=== PATIENT | female | born 1995 | race Caucasian/White ===

== ENCOUNTER 2025-07-20 22:34 | Emergency (ER) | payer OTHER, SELFPAY ==
[2025-07-20 22:39] VITALS: BP 111/71; PULSE 78; RESP 16; TEMP 37.3; O2SAT 98
[2025-07-20 22:45] VITALS: BP 111/71; PULSE 78; RESP 16; TEMP 37.3; O2SAT 98
[2025-07-20 22:59] LABS: Glucose Negative (Negative)
--- NOTE | 2025-07-20 23:04 | ED.GENADUL_ITS ---
Discharge Plan Disposition Patient Disposition: Home Condition: Good Discharge Details Clinical Impression: UTI (urinary tract infection), Cystitis Primary Care Provider: Unknown,Unknown ED Provider: Sudheer Vargas Home Meds and New Rx's Prescriptions: New cephalexin 500 mg capsule 500 mg PO QID 5 Days Qty: 20 0RF No Action BirthControl Pill PO DAILY 0RF Discharge Instructions Instructions: Urinary tract infections in adults Additional Instructions: At this time you have evidence of urinary tract infection. Please take the antibiotic as prescribed. Please take the Pyridium every 8 hours as needed. Please drink plenty of fluids stay well-hydrated and take cranberry concentrate. If you notice any worsening of your symptoms, or any new symptoms such as vomiting, diarrhea, fever, chills, shortness of breath, chest pain, numbness, weakness, or fainting , please return immediately to the emergency department for reevaluation. Please follow up with your primary care provider as soon as possible for reassessment and reevaluation. As always, it was a pleasure participating in your medical care today. HPI General Date/Time Provider Initiated Documentation: 07/20/25 22:38 . HPI Narrative: 30-year-old female with no significant past medical history who is currently on control presents today for evaluation of urinary frequency and burning that is been present for the last 5 hours. Patient admits to a pressure-like sensation in her bladder. She admits to small amount of questionable blood in her urine. She denies any flank pain. She denies any active fever. She does admit to full body aches and a throbbing sensation towards her right leg. She denies any history of kidney stones. She denies any vaginal bleeding or discharge. She denies any history of STDs. No other complaints at this time. Related Data Home Medications ?Medication ?Instructions ?Recorded ?Confirmed cephalexin 500 mg capsule 500 mg PO QID 5 days #20 cap s 07/20/25 Previous Rx's ?Medication ?Instructions ?Recorded cephalexin 500 mg capsule 500 mg PO QID 5 days #20 cap s 07/20/25 Allergies Allergy/AdvReac Type Severity Reaction Status Date / Time No Known Allergies Allergy Unverified 07/20/25 22:47 General Stated Complaint: Urinary KONSTANTIN: 4 Exam Narrative Exam Narrative: 1.Const: Well-nourished, Well-developed, appearing stated age 2.Eyes: PERRL, no conjunctival injection, and symmetrical lids. 3.ENT: Atraumatic external nose and ears. Moist MM. Neck: Symmetric, trachea midline, No thyromegaly. 4.CVS: +S1/S2, Peripheral pulses 2+ and equal in all extremities. Brisk capillary refill in all extremities. 5.RESP: Unlabored respiratory effort. Clear to auscultation bilaterally. No wheezes rales or rhonchi 6.GI: Soft, Nontender/Nondistended, No hepatosplenomegaly. No guarding or rebound. Mild pressure in the suprapubic area, no pain at McBurney's point, neg ative Monterroso sign. No left lower quadrant tenderness. No flank or CVA tenderness. 7.MSK: Normocephalic/Atraumatic, Extremities w/o deformity or ttp No cyanosis or clubbing, Normal movement of all extremities 8.Skin: Warm, Dry. No rashes or lesions. 9.Neuro: collection support specialist II-XII grossly intact. Sensation grossly intact, no focal neurologic deficits. 10.Psych: (AAO) x3. Appropriate mood and affect Course Vital Signs Vital signs: Vital Signs Temperature 37.3 C 07/20/25 22:39 Pulse 78 07/20/25 22:39 Respiratory Rate 16 07/20/25 22:39 Blood Pressure 111/71 07/20/25 22:39 Pulse Oximetry 98 07/20/25 22:39 Temperature 37.3 C 07/20/25 22:45 Temperature Source Temporal Artery Scan 07/20/25 22:45 Pulse 78 07/20/25 22:45 Respiratory Rate 16 07/20/25 22:45 Blood Pressure 111/71 07/20/25 22:45 Blood Pressure Position Sitting 07/20/25 22:45 Pulse Oximetry 98 07/20/25 22:45 Oxygen Delivery Method Room Air 07/20/25 22:45 Oxygen Flow Rate 0 07/20/25 22:45 Pain Level 6 07/20/25 22:45 Lab/Test Results Lab/Test Results: Laboratory Tests Range/Units 07/20/25 22:47 Urine Color (Yellow) Yellow Urine Clarity (Clear) Cloudy Urine pH (5-8) 7.0 Ur Specific Stanton (1.005-1.025) 1.020 Urine Protein (Neg-Trace) mg/dL 30 H Urine Ketones (Negative) mg/dL Negative Urine Blood (Negative) Large H Urine Nitrite (Negative) Negative Urine Bilirubin (Negative) Negative Urine Urobilinogen (Up to 0.2) mg/dL 0.2 Ur Leukocyte Esterase (Negative) Large H Urine Glucose (Negative) mg/dL Negative POC- Test(urine) Negative Medical Decision Making 30-year-old female with no significant past medical history who is currently on control presents today for evaluation of urinary frequency and burning that is been present for the last 5 hours. Patient admits to a pressure-like sensation in her bladder. She admits to small amount of questionable blood in her urine. She denies any flank pain. She denies any active fever. She does admit to full body aches and a throbbing sensation towards her right leg. She denies any history of kidney stones. She denies any vaginal bleeding or discharge. She denies any history of STDs. No other complaints at this time. Exam demonstrates well-appearing female, mild suprapubic pressure, but no pain out of proportion. No signs of an acute surgical abdomen. No pain at McBurney's point, no pain in the right lower quadrant or left lower quadrant. No flank or CVA tenderness to suggest pyelonephritis or kidney stone. No reproducible pain in the groin or thigh to suggest hernia. No vaginal discharge or history of STDs to suggest STI related to etiology. Urinalysis shows evidence of UTI with positive leuk esterase, and high WBCs. There are some RBCs suggestive of cystitis. However again no history or personal or family history of kidney stones, no flank or CVA tenderness to suggest kidney stones. No indication for emergent CT scan at this time. Will get a prescription of Keflex for the patient, we will give the first doses here. We will give Pyridium for symptoms. Discussed red flags for which to return. I have extensively reviewed the treatment plan and discharge instructions with the patient. I have addressed all patient concerns at this time. The patient was made aware of what symptoms to monitor for that would warrant a return to the emergency department. Discussed the plan with the patient, they demonstrate verbal understanding and agreement with our assessment and plan at this time. The documentation in this chart was dictated using mobintent dictation software. Please excuse any dictation errors. [facility] All Active Problems (Updated 07/20/25 @ 23:05 by Sudheer Vargas DO) Cystitis (Acute) UTI (urinary tract infection) (Acute) Social History Smoking/Tobacco Use Status: Never Smoking risk assessment performed?: Yes Alcohol Intake: never Drug use: Never Substance use type: does not use Housing: house Do you feel safe at home: Yes Do you feel safe in your relationship?: Yes
[2025-07-20 23:07] LABS: C & S Indicated? Yes; RBC >50 HPF (0-2); WBC 20-50 HPF (0-5)
[2025-07-20] MEDS: Phenazopyridine 100 MG TAB PO (23:14)
[2025-07-20] MEDS: Cephalexin 500 MG CAP, 4 CAPS/BTL PO (23:18)
--- NOTE | 2025-07-23 16:48 | NUR.NOTE ---
Access chart to determine the antibiotic on discharge for the urine culture. Result given to provider. Nursing Note:
== END 2025-07-20 23:19 | disposition home or self-care (01) ==
LOC: ER 23:14
PROVIDERS: Emergency Provider Student in an Organized Health Care Education/Training Program
DX: N39.0 Urinary tract infection, site not specified (principal); N30.90 Cystitis, unspecified without hematuria
CPT/HCPCS: 99283 ×2; 81025; 87077; 81003; 81015; 87086; 87186